=== PATIENT | male | born 1955 | race Caucasian/White ===

== ENCOUNTER 2020-09-25 08:33 | Emergency (ER) | payer SELFPAY ==
[~2020-09-25] VITALS: Ht 182 cm; Wt 181.0 kg
[2020-09-25] MEDS ORDERED: SODIUM BICARB 8.4% 50 MEQ/50 ML (ABBOTT) SYR INJ ONE (08:40)
[2020-09-25] MEDS ORDERED: EPINEPHrine 0.1 MG/ML 10 ML (HOSPIRA) SYR INJ ONE (08:40)
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
[2020-09-25 11:00] VITALS: BP 0/0
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
== END 2020-09-25 11:00 | disposition expired ==
LOC: ER 08:39
DX: S20.20XA Contusion of thorax, unspecified, initial encounter (principal); T14.90XA Injury, unspecified, initial encounter; I46.9 Cardiac arrest, cause unspecified; E66.9 Obesity, unspecified; Z68.43 Body mass index [BMI] 50.0-59.9, adult; V49.40XA Driver injured in collision with unspecified motor vehicles in traffic accident, initial encounter
CPT/HCPCS: 31500; 82947; 99291; G0390